=== PATIENT | male | born 1945 | race Two or more races ===

== ENCOUNTER 2019-05-24 10:18 | Emergency (ER) | payer MEDICARE, OTHER ==
[2019-05-24 11:53] LABS: ABSOLUTE EOSINOPHILS # (AUTO) 0.1 10^3/uL (0.0-0.6); ABSOLUTE MONOCYTES (AUTO) 0.5 10^3/uL (0.1-1.4); ABSOLUTE NEUT (AUTO) 9.8 10^3/uL (1.7-8.2); BASOPHILS % (AUTO) 0.4 % (0-2); EOSINOPHILS % (AUTO) 0.8 % (0-6); HEMOGLOBIN 17.9 g/dL (13.5-17.0); LYMPHOCYTES % (AUTO) 15.9 % (13-45); MEAN CORPUSCULAR HEMOGLOBIN 31.9 pg (27.0-33.4); MEAN CORPUSCULAR HGB CONC 33.8 g/dL (32.0-36.0); MEAN CORPUSCULAR VOLUME 94 fl (80-97); PLATELET COUNT 173 10^3/uL (150-450); RED BLOOD COUNT 5.61 10^6/uL (4.35-5.55); RED CELL DISTRIBUTION WIDTH 13.5 % (11.5-14.0); SEGMENTED NEUTROPHILS % (AUTO) 78.9 % (42-78); TOTAL CELLS COUNTED % (AUTO) 100 %; WHITE BLOOD COUNT 12.4 10^3/uL (4.0-10.5)
--- NOTE | 2019-05-24 11:53 | ER Document Report ---
ED General - General Chief Complaint: Near Syncope Stated Complaint: WEAKNESS/NAUSEA/VOMITING Time Seen by Provider: 05/24/19 11:35 Primary Care Provider: LEO RIVERA MD [Primary Care Provider] - Follow up as needed TRAVEL OUTSIDE OF THE [place] 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 He came to the emergency department for evaluation. He denies any pain at this time he is on Coumadin he states that he has had an episode of black stool and some minor diarrhea. He states that someone who ate the same food is him yesterday had the same symptoms. He is requesting to leave AMA at this time. Asymptomatic - Related Data Allergies/Adverse Reactions: No Known Allergies Allergy (Verified 05/24/19 10:51) Past Medical History - Social History Smoking Status: Current Every Day Smoker Chew tobacco use (# tins/day): No Drug Abuse: None Family History: Reviewed & Not Pertinent Patient has suicidal ideation: No Patient has homicidal ideation: No GI Medical History: Reports: Hx Gastroesophageal Reflux Disease Review of Systems - Review of Systems Constitutional: No symptoms reported EENT: No symptoms reported Cardiovascular: No symptoms reported Respiratory: No symptoms reported Gastrointestinal: See HPI Genitourinary: No symptoms reported Male Genitourinary: No symptoms reported Musculoskeletal: No symptoms reported Skin: No symptoms reported Hematologic/Lymphatic: No symptoms reported Neurological/Psychological: No symptoms reported Physical Exam - Vital signs Vitals: Temp Resp 97.5 F 20 05/24/19 10:35 05/24/19 10:35 Course - Re-evaluation Re-evalutation: 05/24/19 11:51 Patient is refusing treatment and exam. He is refusing blood draw. I discussed that he could be having bloody stool. He states that he will monitor this and he does not want any treatment at this time. He is of sound capacity alert oriented x4 and appears well educated. He is exp ressing his own decisions any verbally recognizes and acknowledges that leaving could cause adverse medical event including . Patient was urged to return to emergency department if his symptoms become more recurrent for any other concerns. - Vital Signs Vital signs: Temp Pulse Resp BP Pulse Ox 97.8 F 18 146/92 H 97 05/24/19 11:40 05/24/19 11:40 05/24/19 11:40 05/24/19 11:40 - Laboratory Result Diagrams: 05/24/19 09:47 05/24/19 09:47 Laboratory results interpreted by me: 05/24/19 05/24/19 09:47 09:47 WBC 12.4 H RBC 5.61 H Hgb 17.9 H Hct 53.0 H Absolute Neuts (auto) 9.8 H Seg Neutrophils % 78.9 H Glucose 172 H Creatine Kinase 52 L Discharge - Discharge Clinical Impression: Nausea vomiting and diarrhea Condition: Good Disposition: AGAINST MEDICAL ADVICE Referrals: LEO RIVERA MD [Primary Care Provider] - Follow up as needed
[2019-05-24 12:13] LABS: ALBUMIN 4.7 g/dL (3.5-5.0); ALKALINE PHOSPHATASE 95 U/L (38-126); ANION GAP 12 (5-19); ASPARTATE AMINO TRANSFERASE 25 U/L (17-59); BILIRUBIN,DIRECT 0.3 mg/dL (0.0-0.4); BILIRUBIN,TOTAL 0.7 mg/dL (0.2-1.3); BLOOD UREA NITROGEN 16 mg/dL (7-20); CALCIUM 9.8 mg/dL (8.4-10.2); CARBON DIOXIDE 23 mmol/L (22-30); CHLORIDE 105 mmol/L (98-107); CREATINE KINASE 52 U/L (55-170); GLUCOSE 172 mg/dL (75-110); POTASSIUM 4.1 mmol/L (3.6-5.0); TOTAL PROTEIN 7.7 g/dL (6.3-8.2)
[2019-05-24 12:25] LABS: CREATINE KINASE MB 0.68 ng/mL (<4.55); TROPONIN I < 0.012 ng/mL
[2019-05-24 12:41] VITALS: BP 146/92
--- NOTE | 2019-05-25 23:13 | EKG REPORT ---
SEVERITY:- ABNORMAL ECG - SINUS RHYTHM LVH WITH SECONDARY REPOLARIZATION ABNORMALITY ST DEPRESSION, CONSIDER ISCHEMIA, INF LEADS : Confirmed by: Donell Ahuja MD 25-May-2019 23:12:24
== END 2019-05-24 11:40 | disposition left against medical advice (07) ==
LOC: ER 10:18
DX: R11.2 Nausea with vomiting, unspecified (principal); R19.7 Diarrhea, unspecified; R19.5 Other fecal abnormalities; F17.200 Nicotine dependence, unspecified, uncomplicated; Z87.19 Personal history of other diseases of the digestive system; Z79.01 Long term (current) use of anticoagulants; Z53.20 Procedure and treatment not carried out because of patient's decision for unspecified reasons
CPT/HCPCS: 36415; 80053; 82550; 82553; 84484; 85025; 93005; 93010; 99285